=== PATIENT | female | born 1960 | race Caucasian/White ===

== ENCOUNTER → 2016-09-29 | Outpatient (CLI) | payer SELFPAY ==
[2016-09-29 13:19] LABS: CREATININE 0.9 mg/dL (0.5-1.1); ESTIMATED GFR (MDRD EQUATION) > 60
== END | disposition disaster alternative care site (69) ==
LOC: GLAB 12:00 → GRAD 13:00
PROVIDERS: Urology
DX: R31.9 Hematuria, unspecified (principal); M47.816 Spondylosis without myelopathy or radiculopathy, lumbar region
CPT/HCPCS: Q9967